=== PATIENT | male | born 2000 | race Native Hawaiian/Other Pacific Islander ===

== ENCOUNTER 2022-01-18 09:26 | Emergency (ER) | payer OTHER ==
[~2022-01-18] VITALS: Ht 177.8 cm; Wt 68.0 kg
[2022-01-18 09:34] VITALS: BP 127/68; TEMP 98
== END 2022-01-18 10:11 | disposition home or self-care (01) ==
LOC: ED 09:26
DX: S00.31XA Abrasion of nose, initial encounter (principal); W45.0XXA Nail entering through skin, initial encounter; Y92.89 Other specified places as the place of occurrence of the external cause
CPT/HCPCS: 99281

== ENCOUNTER 2022-12-05 12:31 | Emergency (ER) | payer OTHER ==
[~2022-12-05] VITALS: Ht 177.8 cm; Wt 63.5 kg
[2022-12-05 12:37] VITALS: BP 142/77; TEMP 98.9
== END 2022-12-05 13:03 | disposition home or self-care (01) ==
LOC: ED 12:31
DX: Z53.21 Procedure and treatment not carried out due to patient leaving prior to being seen by health care provider (principal)
CPT/HCPCS: 99281

== ENCOUNTER 2022-12-06 10:13 | Outpatient (CLI) | payer OTHER | END 2022-12-06 19:11 | disposition home or self-care (01) | LOC: CT 10:13 | PROVIDERS: ATTEND Orthopaedic Surgery | DX: M25.532 Pain in left wrist (principal); S62.012A Displaced fracture of distal pole of navicular [scaphoid] bone of left wrist, initial encounter for closed fracture; M25.522 Pain in left elbow; S52.124A Nondisplaced fracture of head of right radius, initial encounter for closed fracture; Y92.89 Other specified places as the place of occurrence of the external cause ==